=== PATIENT | male | born 1975 | race Caucasian/White ===

== ENCOUNTER → 2022-04-16 | Outpatient (CLI) | payer OTHER ==
[~2022-04-16] VITALS: Ht 190.5 cm; Wt 92.5 kg
== END ==
LOC: OPSV 12:42
DX: G35 Multiple sclerosis (principal)
CPT/HCPCS: 96365; J2930

== ENCOUNTER → 2022-04-17 | Outpatient (CLI) | payer OTHER ==
[~2022-04-17] VITALS: Ht 190.5 cm; Wt 92.5 kg
== END ==
LOC: OPSV 12:41
DX: G35 Multiple sclerosis (principal)
CPT/HCPCS: 96365; J2930

== ENCOUNTER → 2022-04-18 | Outpatient (CLI) | payer OTHER ==
[~2022-04-18] VITALS: Ht 190.5 cm; Wt 92.5 kg
== END ==
LOC: OPSV 08:46
DX: G35 Multiple sclerosis (principal)
CPT/HCPCS: 96365; J2930